=== PATIENT | male | born 1955 | race Caucasian/White ===

== ENCOUNTER 2022-04-20 07:12 | Day surgery (SDC) | payer OTHER ==
[~2022-04-20] VITALS: Ht 160 cm; Wt 76.2 kg
[2022-04-20] MEDS ORDERED: MIDAZOLAM 2 MG/2 ML VIAL ONE (08:29)
[2022-04-20] MEDS ORDERED: LIDOCAINE 2% 100 MG/5 ML UJET TP ONE (08:29)
[2022-04-20] MEDS ORDERED: diphenhydrAMINE 50 MG/ML VIAL ONE (08:29)
[2022-04-20] MEDS ORDERED: fentaNYL citrate 0.05 MG/ML VIAL ONE (08:29)
[2022-04-20] MEDS ORDERED: MIDAZOLAM 2 MG/2 ML VIAL IVP ONE (12:15)
[2022-04-20] MEDS ORDERED: fentaNYL citrate 0.05 MG/ML VIAL IVP ONE (12:15)
== END 2022-04-20 12:29 | disposition home or self-care (01) ==
LOC: MDS 07:12 → MMU 07:13 → MDS 12:29
PROVIDERS: ATTEND Internal Medicine Gastroenterology
DX: Z12.11 Encounter for screening for malignant neoplasm of colon (principal); D12.0 Benign neoplasm of cecum; D12.2 Benign neoplasm of ascending colon; D12.3 Benign neoplasm of transverse colon; D12.4 Benign neoplasm of descending colon; K57.30 Diverticulosis of large intestine without perforation or abscess without bleeding; I10 Essential (primary) hypertension; E78.5 Hyperlipidemia, unspecified; F32.A Depression, unspecified; Z86.73 Personal history of transient ischemic attack (TIA), and cerebral infarction without residual deficits; K21.9 Gastro-esophageal reflux disease without esophagitis; G47.30 Sleep apnea, unspecified; Z99.89 Dependence on other enabling machines and devices; Z80.8 Family history of malignant neoplasm of other organs or systems; Z79.899 Other long term (current) drug therapy; Z20.822 Contact with and (suspected) exposure to COVID-19
CPT/HCPCS: 45380; 45381; 45385; 87426; 88305; J2250; J3010; J1200